=== PATIENT | female | born 1980 | race African-American/Black ===

== ENCOUNTER 2023-12-12 19:03 | Emergency (ER) | payer SELFPAY ==
[2023-12-12 19:11] VITALS: BP 127/69
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
[2023-12-12] MEDS: TYLENOL 650 MG PO (20:00)
== END 2023-12-12 20:09 | disposition home or self-care (01) ==
LOC: EMR 19:03
PROVIDERS: EMERGENCY PHYSICIAN Emergency Medicine
DX: T24.212A Burn of second degree of left thigh, initial encounter (principal); T24.211A Burn of second degree of right thigh, initial encounter; X10.0XXA Contact with hot drinks, initial encounter; R03.0 Elevated blood-pressure reading, without diagnosis of hypertension
CPT/HCPCS: 99283